=== PATIENT | male | born 1995 | race Caucasian/White ===

== ENCOUNTER 2024-09-20 09:52 | Outpatient (AMB) | payer OTHER, SELFPAY ==
--- NOTE | 2024-09-20 10:04 | MHC.PC.OV ---
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 ?? Prior PCP:?No PCP Last office visit/CPE:? > 5 yrs Acute issue(s):? R shoulder pain Elevated BP ?? PMHx:? Denies SurgHx:?None FHx:?Dad: DM, SocHx: Nonsmoker, EtOH None. No drugs Questionnaire PHQ-9 Over the last 2 weeks, how often have you been bothered by any of the following problems? 1. Little interest or pleasure in doing things: not at all 2. Feeling down, depressed, or hopeless: not at all 3. Trouble falling or staying asleep, or sleeping too much: not at all 4. Feeling tired or having little energy: not at all 5. Poor appetite or overeating: not at all 6. Feeling bad about yourself - or that you are a failure or have let yourself or your family down: not at all 7. Trouble concentrating on things, such as reading the newspaper or watching television: not at all 8. Moving or speaking so slowly that other people could have noticed. Or the opposite - being so fidgety or restless that you have been moving around a lot more than usual: not at all 9. Thoughts that you would be better off or of hurting yourself in some way: not at all Total score: 0 Depression Screening Interpretation: Positive Depression Screening Done: Yes 08020 - PHQ-9 Billing: Yes Source: Developed by Drs. Brennan Zhang, Tamica Maddox, Santiago Balderas and colleagues, with an educational iraida from [employer]. Thrive Questionnaire I am a: Patient What is your living situation today?: I have a steady place to live Within the past 12 months, did the food you bought not last and you didn't have the money to get more?: Never true Within the past 12 months, did you worry whether your food would run out before you got money to buy more?: Never true Do you have trouble paying for medicines?: I choose not to answer this question Do you have trouble getting transportation to medical appointments?: No Do you have trouble paying your heating and electricity bill?: No Do you have trouble taking care of your child, family member or friend?: No Do you have trouble with day-to-day activities such as bathing, preparing meals, shopping, managing finances, etc.?: No Are you currently unemployed and looking for a job?: No Are you interested in more education?: No Please select the resources that you would like help with: None Currently or been in a relationship where the following occur: No concerns reported THRIVE Score: 0 AUDIT C Alcohol Use Questionnaire (AUDIT-C) 1. How often do you have a drink containing alcohol?: Never Total Score: 0 YANY-7 AMB Questionnaire YANY-7 Feeling nervous, anxious, or on edge: 1 = Several days Not being able to stop or control worryin = Not at all Worrying too much about different things: 0 = Not at all Trouble relaxin = Not at all Being so restless that it is hard to sit still: 0 = Not at all Becoming easily annoyed or irritable: 0 = Not at all Source: Developed by Drs. Brennan Zhang, Tamica Maddox, Santiago Balderas and colleagues, with an educational iraida from [employer]. YANY-7 Assessment Billing YANY-7 Assessment Tool: YANY-7 Assessment 28076 Review of Systems Const Denies chills, Denies fatigue, Denies fever(s), Denies headache(s) and Denies weakness Eyes Denies change in vision ENT Denies dizziness and Denies headache(s) Card Denies chest pain, Denies lightheadedness, Denies dyspnea and Denies other (Palpitations) Resp Denies cough, Denies dyspnea, Denies wheezing and Denies other ( shortness of breath) GI Denies abdominal pain, Denies melena, Denies hematochezia, Denies change in bowel habits, Denies dyspepsia and Denies nausea Denies hematuria and Denies dysuria Musc Denies numbness and Denies tingling Skin/Breast Denies rash, Denies unusual bruising and Denies wounds Neuro Denies dizziness, Denies headache(s), Denies numbness, Denies Sensory deficit (Neuro), Denies tingling, Denies paresthesias and Denies weakness Psych Denies anxiety and Denies depression Endo Denies fatigue Charles/Lymph Denies easy bleeding and Denies easy bruising Aller/Immun Denies wheezing Physical exam (Primary Care) Vital Signs: Last Vital Signs Temp 97.9 F 09/20/24 10:05 Pulse 85 09/20/24 10:05 Resp 12 09/20/24 10:05 BP 149/78 H 09/20/24 10:05 Pulse Ox 97 09/20/24 10:05 Oxygen Delivery Method Room Air 09/20/24 10:05 BMI result Body Mass Index 42.7 PHQ-9: PHQ-9 Score PHQ-9: Total score 0 09/20/24 10:20 Depression Screening Interpretation: Positive Currently or been in a relationship where the following occur: No concerns reported Const General: no acute distress and well developed Nutritional Appearance: well nourished and obese morbidly obese Orientation/consciousness: patient oriented x3 HENMT Head: Yes normocephalic and Yes atraumatic Ears: hearing grossly normal bilaterally and TM's normal bilaterally General nose exam: Normal external nose present and Normal nares present Mouth: Normal oral and palatal mucosa present and moist mucous membranes Teeth and gingiva: dentition normal Throat: Yes posterior oropharynx normal Eyes General: appearance normal, both eyes and all related structures Pupils: Equal, round and reactive pupils present EOM: EOMs intact bilaterally Neck Neck: Yes normal visual inspection, Yes no lymphadenopathy and Yes trachea midline Thyroid: Thyroid normal Carotids: no bruits Lymphatic: no lymphadenopathy noted Chest Chest palpation & inspection: normal inspection of the chest Resp Effort & Inspection: normal respiratory effort Auscultation: clear to auscultation bilaterally Cardio Rate: regular rate Rhythm: regular rhythm Heart sounds: S1 normal heart sound present, S2 normal heart sound present, no gallops, no murmurs and no rubs Bruits: no abdominal aortic bruits and no carotid bruits GI Palpation (GI): No Abdominal aortic bruit present, Soft to palpation, nontender, No hepatosplenomegaly present and No Rebound tenderness present Auscultation: normal bowel sounds General: Yes no CVA tenderness Back/Spine/Pelvis Back: no CVA tenderness Cervical Spine: cervical ROM normal and No Cervical spine tenderness Thoracic/Lumbar Spine: thoraco-lumbar ROM normal, No pain with thoraco-lumbar ROM, No thoracic spinal tenderness and No lumbar spinal tenderness Skin Lesions: no lesions Rashes: no rashes Trauma: no lacerations or abrasions Wounds: no wounds Nails: normal Neuro General: patient oriented x3 and gait normal Cranial nerves: Yes Equal, round and reactive pupils present Cognition (Neuro): normal cognition Gait exam (Neuro): Normal gait present Motor exam (neuro): 5/5 motor strength present throughout Sensory Exam: No Sensory deficit (Neuro) Deep tendon reflexes (DTR's): Right patellar reflex intensity grade: 2+ and Left patellar reflex intensity grade: 2+ Extrem General: Yes normal to inspection and No edema Psych Appearance: grossly normal Affect: normal affect Attitude: cooperative Thought process: Normal thought process present Coding Level of Care Code New Pt Level 3 (77749) New Pt Prev Care 18-39yr(76389 Diagnoses Adult general medical exam Z00.00 Elevated blood pressure reading R03.0 Morbid obesity E66.01 Shoulder pain M25.519 Neoplasm of uncertain behavior of skin D48.5 Laboratory exam ordered as part of routine general medical examination Z00.00 Additional Codes YANY-7 Assessment Billing - YANY-7 Assessment Tool: YANY-7 Assessment 02112 ([id number]) Assessment & Plan Assessment & Plan (1) Adult general medical exam: Code(s): Z00.00 - Encounter for general adult medical examination without abnormal findings Category: Medical Plan: Patient?presents?as?new?patient?for?complete?physical?exam (2) Elevated blood pressure reading: Code(s): R03.0 - Elevated blood-pressure reading, without diagnosis of hypertension Category: Medical Plan: Blood?pressure?is?high.??Patient?denies?prior?diagnosis?of?hypertension We?discussed?that?we?will?recheck?this?at?his?next?visit Encouraged?weight?loss?and?salt/sodium?avoidance (3) Morbid obesity: Code(s): E66.01 - Morbid (severe) obesity due to excess calories Category: Medical Plan: Encouraged?weight?loss (4) Shoulder pain: Code(s): M25.519 - Pain in unspecified shoulder Category: Medical Plan: Start?physical?therapy NSAIDs If?not?improving?will?make?referral?to?Ortho (5) Neoplasm of uncertain behavior of skin: Code(s): D48.5 - Neoplasm of uncertain behavior of skin Category: Medical Plan: Large?moles?and?skin?tags?at?back?of?head?in?hairline Referred?to?dermatology (6) Laboratory exam ordered as part of routine general medical examination: Code(s): Z00.00 - Encounter for general adult medical examination without abnormal findings Category: Medical Plan: Check?labs Orders: Orders Lipid Panel Today Z00.00 - Encounter for general adult medical examination without abnormal findings UA and rflx microscopic Today Z00.00 - Encounter for general adult medical examination without abnormal findings HIV Ab/Ag Today Z11.3 - Encounter for screening for infections with a predominantly sexual mode of transmission Hepatitis B,C Profile Today Z11.3 - Encounter for screening for infections with a predominantly sexual mode of transmission Syphilis Screen Today Z11.3 - Encounter for screening for infections with a predominantly sexual mode of transmission PT Evaluation and Treatment Today M25.519 - Pain in unspecified shoulder Comprehensive [place]. Panel Fast Today Z00.00 - Encounter for general adult medical examination without abnormal findings Microalbumin, Random (w Creat) Today I10 - Essential (primary) hypertension TSH reflex Free T4 Today Z00.00 - Encounter for general adult medical examination without abnormal findings CT NG by PCR Today Z11.3 - Encounter for screening for infections with a predominantly sexual mode of transmission Referrals Dermatology Referral D48.5 - Neoplasm of uncertain behavior of skin
[2024-09-20 10:05] VITALS: BP 149/78; PULSE 85; RESP 12; TEMP 36.6; O2SAT 97; BMI 42.7
== END 2024-09-20 11:00 | disposition home or self-care (01) ==
PROVIDERS: PCP Family Medicine; Visit Provider Family Medicine
DX: Z00.00 Encounter for general adult medical examination without abnormal findings (principal); E66.01 Morbid (severe) obesity due to excess calories; Z68.41 Body mass index [BMI] 40.0-44.9, adult; R03.0 Elevated blood-pressure reading, without diagnosis of hypertension; M25.511 Pain in right shoulder; D48.5 Neoplasm of uncertain behavior of skin

== ENCOUNTER → 2024-09-20 09:52 | Outpatient (BNVA) | payer OTHER, SELFPAY | PROVIDERS: PCP Nurse Practitioner Family; Visit Provider Family Medicine | DX: Z00.01 Encounter for general adult medical examination with abnormal findings (principal); R03.0 Elevated blood-pressure reading, without diagnosis of hypertension; E66.01 Morbid (severe) obesity due to excess calories; D48.5 Neoplasm of uncertain behavior of skin; M25.511 Pain in right shoulder | CPT/HCPCS: 96127; 99202; 99385 ==

== ENCOUNTER 2024-10-19 09:41 | Outpatient (AMB) | payer OTHER, SELFPAY ==
[2024-10-19 10:09] VITALS: BP 128/80; PULSE 83; RESP 14; TEMP 37.1; O2SAT 98; BMI 42.7
--- NOTE | 2024-10-19 10:09 | A.OFFPC_ITS ---
Vital Signs 10/19/24 10:09 Height 5 ft 8 in Weight 281 lb 2 oz BMI 42.7 BP 128/80 Blood Pressure Location Lt brachial Position Sitting Respiration 14 Pulse 83 Pulse Source Pulse Oximeter Temp 98.7 F Temp Source Oral Pulse Oximetry (%) 98 Oxygen Delivery Method Room Air Intake Visit Reasons: f/u CPE-labs, elev. blood pressure Intake Note: elevated bp Allergies No Known Allergies Allergy (Verified 10/19/24 10:09) Medication List - Last Reconciled 10/19/24 by Peewee Blum MD No Known Home Meds HPI f/u CPE-labs, elev. blood pressure HPI Details 29 y/o male presents to f/u elevated BP. Blood pressure today 128/80, 83p. Questionnaire Thrive Questionnaire Date Thrive assessed: 09/20/24 I am a: Patient What is your living situation today?: I have a steady place to live Within the past 12 months, did the food you bought not last and you didn't have the money to get more?: Never true Within the past 12 months, did you worry whether your food would run out before you got money to buy more?: Never true Do you have trouble paying for medicines?: I choose not to answer this question Do you have trouble getting transportation to medical appointments?: No Do you have trouble paying your heating and electricity bill?: No Do you have trouble taking care of your child, family member or friend?: No Do you have trouble with day-to-day activities such as bathing, preparing meals, shopping, managing finances, etc.?: No Are you currently unemployed and looking for a job?: No Are you interested in more education?: No Please select the resources that you would like help with: None Currently or been in a relationship where the following occur: No concerns reported THRIVE Score: 0 Review of Systems Const Denies chills, Denies fatigue, Denies fever(s), Denies headache(s) and Denies weakness ENT Denies dizziness and Denies headache(s) Card Denies dyspnea Resp Denies cough, Denies dyspnea, Denies wheezing and Denies other (shortness of breath) Musc Denies numbness and Denies tingling Neuro Denies dizziness, Denies headache(s), Denies numbness, Denies tingling and Denies weakness Psych Denies anxiety and Denies depression Endo Denies fatigue Aller/Immun Denies wheezing Physical exam (Primary Care) Vital Signs: Last Vital Signs Temp 98.7 F 10/19/24 10:09 Pulse 83 10/19/24 10:09 Resp 14 10/19/24 10:09 BP 128/80 10/19/24 10:09 Pulse Ox 98 10/19/24 10:09 Oxygen Delivery Method Room Air 10/19/24 10:09 BMI result Body Mass Index 42.7 Thrive Assessment: Date of Thrive Assessment Date Thrive assessed 09/20/24 10/19/24 10:11 Currently or been in a relationship where the following occur: No concerns reported Const General: well developed; No acute distress Nutritional Appearance: well nourished Orientation/consciousness: patient oriented x3 HENMT Head: Yes normocephalic and Yes atraumatic Eyes General: appearance normal, both eyes and all related structures Pupils: Equal, round and reactive pupils present EOM: EOMs intact bilaterally Resp Effort & Inspection: normal respiratory effort Auscultation: clear to auscultation bilaterally Cardio Rate: regular rate Rhythm: regular rhythm Heart sounds: S1 normal heart sound present, S2 normal heart sound present, no gallops, no murmurs and no rubs Neuro General: patient oriented x3 and gait normal Cranial nerves: Yes Equal, round and reactive pupils present Psych Affect: normal affect Coding Level of Care Code Est Pt Level 3 (75078) Diagnoses Elevated blood pressure reading R03.0 Assessment & Plan Assessment & Plan (1) Elevated blood pressure reading: Code(s): R03.0 - Elevated blood-pressure reading, without diagnosis of hypertension Category: Medical Plan: Blood?pressure?much?improved?from?last?encounter?i n?only?mildly?in?prehypertensive?range. Encouraged?a?diet?low?in?salt/sodium?and?encouraged?weight?loss?exercise
== END 2024-10-19 10:15 | disposition home or self-care (01) ==
PROVIDERS: PCP Nurse Practitioner Family; Visit Provider Family Medicine
DX: R03.0 Elevated blood-pressure reading, without diagnosis of hypertension (principal)

== ENCOUNTER → 2024-10-19 09:41 | Outpatient (BNVA) | payer OTHER, SELFPAY | PROVIDERS: PCP Nurse Practitioner Family; Visit Provider Family Medicine ==

== ENCOUNTER 2024-10-19 09:54 | Outpatient (REF) | payer OTHER, SELFPAY ==
[2024-10-19 11:18] LABS: Appearance Urine Clear; Color Urine Yellow; Glucose Urine UA Negative (Negative); Leukocyte Esterase Urine Negative (Negative); Nitrite Urine Negative (Negative); Specific Gravity - Urine 1.015 (1.005-1.025); Urine Blood Negative (Negative); Urine Ketones Negative (Negative); Urine Protein Negative (Neg-Trace)
[2024-10-19 11:52] LABS: Creatinine Urine 113.39 mg/dL; Microalbum/Creatinine Ratio Ur 6.1 ug/mg cr (<30)
[2024-10-19 12:20] LABS: Alanine Aminotransferase 67 U/L (0-40); Albumin Level 4.3 g/dL (3.5-5.0); Alkaline Phosphatase 69 U/L (39-117); Anion Gap 10 (12-20); Aspartate Amino Transferase 34 U/L (5-37); Bilirubin Total 0.5 mg/dL (0.0-1.0); Blood Urea Nitrogen 12 mg/dL (9-16); Calcium 9.5 mg/dL (8.4-10.2); Carbon Dioxide 28 mmol/L (22-29); Chloride 106 mmol/L (96-108); Cholesterol 161 mg/dL (<200); Estimated Glomerular Filt Rate > 60; Glucose Fasting 90 mg/dL (60-99); HDL Cholesterol 25 mg/dL (>40); LDL Cholesterol Calculated 87 mg/dL (<100); Potassium 3.8 mmol/L (3.3-5.1); Sodium 140 mmol/L (135-145); Total Protein 7.8 g/dL (6.5-8.0); Triglycerides 249 mg/dL (<150)
[2024-10-19 12:27] LABS: Syphilis Screen Nonreactive (Nonreactive)
[2024-10-19 12:28] LABS: TSH reflex Free T4 2.01 uIU/mL (0.32-4.0)
[2024-10-19 12:31] LABS: HBsAGNum1 0.46 S/CO (0.00-0.99); HIV AB/AG Nonreactive (Nonreactive); HIV Num 1 0.07 S/CO (0.00-0.99); Hepatitis B Core Antibody Nonreactive (Nonreactive); Hepatitis B Surface Antigen Negative (Negative); ~HepC Num1 0.12 S/CO (0.00-0.79); ~Hepatitis B Surface Antibody NONREACTIVE (Nonreactive); ~Hepatitis C Antibody Nonreactive (Nonreactive)
[2024-10-19 13:34] LABS: CT PCR NOT DETECTED (Not Detect.); NG PCR NOT DETECTED (Not Detect.)
== END 2024-10-19 09:55 | disposition home or self-care (01) ==
LOC: HO.WFDLDS 09:54
PROVIDERS: Visit Provider Family Medicine
DX: R03.0 Elevated blood-pressure reading, without diagnosis of hypertension (principal); Z00.00 Encounter for general adult medical examination without abnormal findings; Z11.3 Encounter for screening for infections with a predominantly sexual mode of transmission
CPT/HCPCS: 80053; 80061; 81003; 82043; 82570; 84443; 86704; 86706; 86780; 86803; 87340; 87389; 87491; 87591; 99212

== ENCOUNTER 2024-11-24 16:58 | Outpatient (AMB) | payer OTHER, SELFPAY ==
--- NOTE | 2024-11-24 16:56 | MHC.PC.OV ---
Intake Visit Reasons: f/u CPE-labs via telemedicine Allergies No Known Allergies Allergy (Verified 11/24/24 16:57) HPI f/u CPE-labs via telemedicine HPI Details 29 y/o male presents to f/u CPE-labs via telemedicine. Labs drawn 10/19/24. Reviewed labsw ith pt. Elevated ALT of 67. Triglycerides 249. TC 161. LDL 87. HDL low at 25. HPI Comments History of Present Illness Details Documentation assistance for Peewee Blum MD, was provided by Kumar Wolf,? Mica Layer on 11/24/2024 at 5:39 PM EST. I, Dr. Blum, have read, observed, and verified documentation. ?? Questionnaire Thrive Questionnaire Date Thrive assessed: 09/20/24 Review of Systems Const Denies chills, Denies fatigue, Denies fever(s), Denies headache(s) and Denies weakness ENT Denies dizziness and Denies headache(s) Card Denies dyspnea Resp Denies cough, Denies dyspnea, Denies wheezing and Denies other (shortness of breath) Musc Denies numbness and Denies tingling Neuro Denies dizziness, Denies headache(s), Denies numbness, Denies tingling and Denies weakness Psych Denies anxiety and Denies depression Endo Denies fatigue Aller/Immun Denies wheezing Physical exam (Primary Care) Thrive Assessment: Date of Thrive Assessment Date Thrive assessed 09/20/24 11/24/24 16:57 Telehealth Telehealth Telehealth Platform: Telephone Location of provider rendering services: practice address Location of patient: address on file Patient Identification confirmed using: Name, : Yes Telehealth method: voice only Patient verbally consented to treatment: Yes Patient verbally consented to billing insurance company: Yes Patient informed of any privacy concerns related to visit: Yes Minutes spent on Phone/Video with Pt.: 7 Coding Level of Care Code Tele Est Pt Level 2 (65500) Diagnoses Elevated ALT measurement R74.01 Hypertriglyceridemia E78.1 Low HDL (under 40) E78.6 Assessment & Plan Assessment & Plan (1) Elevated ALT measurement: Code(s): R74.01 - Elevation of levels of liver transaminase levels Category: Medical Plan: Liver?enzyme?elevated. Patient?is?significantly?overweight?but?he?has?been?working?on?this Encouraged?weight?loss?and?exercise Will?recheck?liver?enzymes?in?about?3?months. Hydrate?well (2) Hypertriglyceridemia: Code(s): E78.1 - Pure hyperglyceridemia Category: Medical Plan: Triglycerides?are?elevated?and?as?above,?I?encouraged?weight?loss?and?exercise Will?recheck?in?few?months?with?next?lab?draw (3) Low HDL (under 40): Code(s): E78.6 - Lipoprotein deficiency Category: Medical Plan: Encouraged?exercise Will?follow-up?at?next?lab?draw?in?about?3?months Orders: Orders Lipid Panel Today Z00.00 - Encounter for general adult medical examination without abnormal findings Comprehensive [place]. Panel Fast Today Z00.00 - Encounter for general adult medical examination without abnormal findings
== END 2024-11-25 10:03 | disposition home or self-care (01) ==
LOC: HO.HMCFM 16:58
PROVIDERS: PCP Family Medicine; Visit Provider Family Medicine
DX: R74.01 Elevation of levels of liver transaminase levels (principal); E78.1 Pure hyperglyceridemia; E78.6 Lipoprotein deficiency

== ENCOUNTER 2025-02-22 13:29 | Outpatient (REF) | payer OTHER, SELFPAY ==
[2025-02-22 18:56] LABS: Alanine Aminotransferase 73 U/L (0-40); Albumin Level 4.5 g/dL (3.5-5.0); Alkaline Phosphatase 77 U/L (39-117); Anion Gap 12 (12-20); Aspartate Amino Transferase 43 U/L (5-37); Bilirubin Total 0.6 mg/dL (0.0-1.0); Blood Urea Nitrogen 14 mg/dL (9-16); Calcium 9.5 mg/dL (8.4-10.2); Carbon Dioxide 25 mmol/L (22-29); Chloride 105 mmol/L (96-108); Cholesterol 154 mg/dL (<200); Estimated Glomerular Filt Rate > 60; Glucose Fasting 79 mg/dL (60-99); HDL Cholesterol 28 mg/dL (>40); LDL Cholesterol Calculated 80 mg/dL (<100); Potassium 3.7 mmol/L (3.3-5.1); Sodium 138 mmol/L (135-145); Total Protein 8.1 g/dL (6.5-8.0); Triglycerides 234 mg/dL (<150)
== END 2025-02-22 13:30 | disposition home or self-care (01) ==
LOC: HO.WFDLDS 13:29
PROVIDERS: Visit Provider Family Medicine
DX: Z00.00 Encounter for general adult medical examination without abnormal findings (principal); Z13.6 Encounter for screening for cardiovascular disorders
CPT/HCPCS: 36415; 80053; 80061

== ENCOUNTER 2025-02-23 16:26 | Outpatient (AMB) | payer OTHER, SELFPAY ==
--- NOTE | 2025-02-23 16:28 | MHC.PC.OV ---
Vital Signs 02/23/25 16:32 Height 5 ft 8 in Weight 281 lb 4 oz BMI 42.8 BP 136/78 Blood Pressure Location Rt brachial Position Sitting Respiration 16 Pulse 74 Pulse Source Pulse Oximeter Temp 98.3 F Temp Source Oral Pulse Oximetry (%) 98 Oxygen Delivery Method Room Air Intake Visit Reasons: f/u hypertriglyceridemia, labs Intake Note: patient here for follow up on hypertriglyceridemia and labs Fun House Attendant Required: No Allergies No Known Allergies Allergy (Verified 02/23/25 16:30) Tobacco use date assessed: 02/23/25 Dental Screening Dental Screen Date: 02/23/25 Did you have a dental visit in the last 12 months?: No Did you have a dental problem in the last 6 months where you did not have access to dental care?: No Was dental information given to patient?: No HPI f/u hypertriglyceridemia, labs HPI Details 30 y/o male presents to f/u hypertriglyceridemia, labs. Labs drawn 02/22/25. Reviewed labs with pt. Elevated liver enzymes - AST 43, ALT 73. Triglycerides 234. TC 154. LDL 80. HDL low at 28. Pt notes he has been having difficulty hearing people out of his L ear. [facility] Social History Housing: House Patient Tobacco Use Status: Never used Tobacco e-Cigarette/Vaping Use: Never Used Second Hand Smoke Exposure: No service: No Current occupational status: employed Current occupation: security Current occupational exposures/hazards: No Cognitive needs: No Hearing needs: No Vision needs: No Questionnaire Thrive Questionnaire Date Thrive assessed: 09/20/24 Review of Systems Const Denies chills, Denies fatigue, Denies fever(s), Denies headache(s) and Denies weakness ENT Denies dizziness and Denies headache(s) Card Denies dyspnea Resp Denies cough, Denies dyspnea, Denies wheezing and Denies other (shortness of breath) Musc Denies numbness and Denies tingling Neuro Denies dizziness, Denies headache(s), Denies numbness, Denies tingling and Denies weakness Psych Denies anxiety and Denies depression Endo Denies fatigue Aller/Immun Denies wheezing Physical exam (Primary Care) Vital Signs: Last Vital Signs Temp 98.3 F 02/23/25 16:32 Pulse 74 02/23/25 16:32 Resp 16 02/23/25 16:32 BP 136/78 02/23/25 16:32 Pulse Ox 98 02/23/25 16:32 Oxygen Delivery Method Room Air 02/23/25 16:32 BMI result Body Mass Index 42.8 Tobacco/Smoking Status: Tobacco use Status Tobacco use date assessed 02/23/25 02/23/25 16:32 Patient Tobacco Use Status Never used Tobacco 02/23/25 16:32 e-Cigarette/Vaping Use Never Used 02/23/25 16:32 Thrive Assessment: Date of Thrive Assessment Date Thrive assessed 09/20/24 02/23/25 16:32 Const General: well developed; No acute distress Nutritional Appearance: well nourished and obese morbidly obese Orientation/consciousness: patient oriented x3 HENMT Head: Yes normocephalic and Yes atraumatic Eyes General: appearance normal, both eyes and all related structures Pupils: Equal, round and reactive pupils present EOM: EOMs intact bilaterally Resp Effort & Inspection: normal respiratory effort Neuro General: patient oriented x3 and gait normal Cranial nerves: Yes Equal, round and reactive pupils present Psych Affect: normal affect Coding Level of Care Code Est Pt Level 4 (89796) Diagnoses Hypertriglyceridemia E78.1 Elevated liver enzymes R74.8 Cerumen debris on tympanic membrane of left ear H61.22 Assessment & Plan Assessment & Plan (1) Hypertriglyceridemia: Code(s): E78.1 - Pure hyperglyceridemia Category: Medical Plan: Elevated?triglycerides?with?low?HDL LDL?is?okay Trial?in?[place]?3?supplement Can?recheck?next?visit (2) Elevated liver enzymes: Code(s): R74.8 - Abnormal levels of other serum enzymes Category: Medical Plan: Liver?enzymes?have?risen Check?ultrasound Will?call?patient?if?action?is?required?otherwise?will?review?at?next?visit. (3) Cerumen debris on tympanic membrane of left ear: Code(s): H61.22 - Impacted cerumen, left ear Category: Medical Plan: Can?try?Debrox?drops?OTC Avoid?using?Q-tips?in?ear?canal Orders: Orders Lipid Panel Today E78.6 - Lipoprotein deficiency, Z00.00 - Encounter for general adult medical examination without abnormal findings US abdomen interiano w elastography Today R74.8 - Abnormal levels of other serum enzymes Comprehensive [place]. Panel Fast Today R74.8 - Abnormal levels of other serum enzymes, Z00.00 - Encounter for general adult medical examination without abnormal findings Medications: New omega 5-aeb-zmf-fish oil 1,000 (120-180) mg (Fish Oil) 1 cap PO BID 90 days 180 caps 3RF
[2025-02-23 16:32] VITALS: BP 136/78; PULSE 74; RESP 16; TEMP 36.8; O2SAT 98; BMI 42.8
== END 2025-02-23 17:21 | disposition home or self-care (01) ==
LOC: HO.HMCFM 16:26
PROVIDERS: PCP Family Medicine; Visit Provider Family Medicine
DX: E78.1 Pure hyperglyceridemia (principal); R74.8 Abnormal levels of other serum enzymes; H61.22 Impacted cerumen, left ear

== ENCOUNTER → 2025-02-23 16:26 | Outpatient (BNVA) | payer OTHER, SELFPAY | PROVIDERS: PCP Family Medicine; Visit Provider Family Medicine | DX: E78.1 Pure hyperglyceridemia (principal); E78.6 Lipoprotein deficiency; R74.8 Abnormal levels of other serum enzymes; H61.22 Impacted cerumen, left ear | CPT/HCPCS: 99212 ==

== ENCOUNTER 2025-04-08 11:12 | Outpatient (REF) | payer OTHER, SELFPAY ==
--- NOTE | ~2025-04-08 | US_ITS ---
EXAMINATION: US ABDOMEN LIMITED WITH LIVER ELASTOGRAPHY HISTORY: R74.8 - Abnormal levels of other serum enzymes TECHNIQUE: Real-time grayscale ultrasound imaging of the right upper quadrant was performed and images were reviewed. COMPARISON: There are no prior studies for comparison. FINDINGS: Liver: The right lobe of the liver measures 15.7 cm in size. The left lobe of the liver measures 9.5 cm in size. The liver demonstrates increased echotexture, consistent with steatosis. No focal mass or intrahepatic biliary ductal dilatation is identified. There is normal hepatopedal flow in the portal vein. Ultrasound elastography of the liver was performed with 10 separate measurements of the liver parenchyma with the patient in the supine position. Measurements were obtained approximately 2 cm below Fabiola's capsule and perpendicular to the capsule. Images are of satisfactory quality. The median shear wave velocity is 1.14 m/s. The interquartile range/median (IQR/median) is 0.14. Gallbladder and biliary tree: The gallbladder is unremarkable, without evidence of calculi, wall thickening, or pericholecystic fluid. There is no sonographic Carlson sign. The common bile duct is normal in caliber measuring 3 mm. Right Kidney: The right kidney measures 10.0 cm in length. The right kidney is unremarkable, without evidence of masses, hydronephrosis, or calculi. Pancreas: The pancreatic head, neck, and body are unremarkable. The pancreatic tail is obscured by bowel gas. Abdominal aorta and inferior vena cava: The visualized portions of the abdominal aorta and inferior vena cava are normal in caliber. There is no free fluid in the right upper quadrant. US/US abdomen interiano w elastography IMPRESSION: Hepatic steatosis. The median shear wave velocity in the liver is 1.14 m/s, corresponding to a median liver stiffness of 4.07 kPa. The IQR/median value is 0.14. This is indicative of a quality data set. Findings are indicative of a normal elastography value with a low likelihood of severe fibrosis or cirrhosis. REFERENCE: Society of Radiologists in Ultrasound Liver Stiffness Thresholds (2020): LIVER STIFFNESS THRESHOLDS: *Shear wave velocity less than 1.3 m/s (Liver Stiffness equal or less than 5 kPa): High probability of being normal. *Shear wave velocity less than 1.7 m/s (Liver Stiffness less than 9 kPa): In the absence of other known clinical signs, rules out compensated advanced chronic liver disease. *Shear wave velocity between 1.7-2.1 m/s (Liver Stiffness 9-13 kPa): Suggestive of compensated advanced chronic liver disease but need further test for confirmation. *Shear wave velocity between 2.1-2.4 m/s (Liver Stiffness 13-17 kPa): Rules in compensated advanced chronic liver disease. *Shear wave velocity greater than 2.4 m/s (Liver Stiffness over 17 kPa): Suggestive of clinically significant portal hypertension. QUALITY OF DATA SET: *IQR/Median value equal or less than 0.15 implies a quality data set. *IQR/Median value over 0.15 implies a poor quality data set. SIGNIFICANT CHANGE FROM PRIOR EXAM: Significant change if liver stiffness measurement is 10% or greater from prior exam. OTHER CONSIDERATIONS: The stage of liver fibrosis may be overestimated in the setting of acute hepatitis, liver inflammation, elevated liver function tests, hepatic vascular congestion, obstructive cholestasis, non-fasting state, and infiltrative diseases such as amyloidosis and lymphoma. In some patients with NAFLD, the liver stiffness thresholds for compensated advanced chronic liver disease may be lower. In causes other than viral hepatitis and NAFLD, liver stiffness thresholds are not well established. Electronically signed by: Brennan Berg MD 04/08/2025 12:08 PM EDT
== END 2025-04-08 11:13 | disposition home or self-care (01) ==
LOC: HO.US 11:12
PROVIDERS: PCP Family Medicine; Visit Provider Family Medicine
DX: R74.8 Abnormal levels of other serum enzymes (principal)
CPT/HCPCS: 76705; 76981

== ENCOUNTER → 2025-04-08 11:21 | Outpatient (BNV) | payer OTHER, SELFPAY | PROVIDERS: PCP Family Medicine; Visit Provider Radiology Diagnostic Radiology | DX: K76.0 Fatty (change of) liver, not elsewhere classified (principal) | CPT/HCPCS: 76705; 76981 ==

== ENCOUNTER 2025-05-26 15:04 | Outpatient (REF) | payer OTHER, SELFPAY ==
[2025-05-26 16:44] LABS: Alanine Aminotransferase 77 U/L (0-40); Albumin Level 4.9 g/dL (3.5-5.0); Alkaline Phosphatase 71 U/L (39-117); Anion Gap 13 (12-20); Aspartate Amino Transferase 40 U/L (5-37); Blood Urea Nitrogen 15 mg/dL (9-16); Calcium 9.5 mg/dL (8.4-10.2); Carbon Dioxide 26 mmol/L (22-29); Chloride 103 mmol/L (96-108); Cholesterol 144 mg/dL (<200); Estimated Glomerular Filt Rate > 60; HDL Cholesterol 26 mg/dL (>40); Potassium 3.8 mmol/L (3.3-5.1); Sodium 138 mmol/L (135-145); Total Protein 8.3 g/dL (6.5-8.0); Triglycerides 261 mg/dL (<150)
== END 2025-05-26 15:05 | disposition home or self-care (01) ==
LOC: HO.LAB 15:04
PROVIDERS: Visit Provider Family Medicine
DX: Z00.00 Encounter for general adult medical examination without abnormal findings (principal); E78.6 Lipoprotein deficiency; R74.8 Abnormal levels of other serum enzymes
CPT/HCPCS: 36415; 80053; 80061

== ENCOUNTER 2025-05-30 10:41 | Outpatient (AMB) | payer OTHER, SELFPAY ==
--- NOTE | 2025-05-30 10:52 | A.OFFPC_ITS ---
Vital Signs 05/30/25 10:53 Height 5 ft 8 in Weight 280 lb 6 oz BMI 42.6 BP 130/90 H Blood Pressure Location Rt brachial Position Sitting Respiration 14 Pulse 85 Pulse Source Pulse Oximeter Temp 97.9 F Temp Source Oral Pulse Oximetry (%) 96 Oxygen Delivery Method Room Air Intake Visit Reasons: f/u liver enzymes, triglycerides Intake Note: patient is scheduled for follow up labs Sub Assembly Team Worker Required: No Allergies No Known Allergies Allergy (Verified 05/30/25 10:53) Medication List - Last Reconciled 05/30/25 by Peewee Blum MD omega [id number] oil 1,000 (120-180) mg (Fish Oil) 1 cap PO BID 90 days Tobacco use date assessed: 02/23/25 Dental Screening Dental Screen Date: 02/23/25 HPI f/u liver enzymes, triglycerides HPI Details 30 y/o male presents to f/u liver enzyme s, triglycerides. Labs drawn 05/26/25. Reviewed labs wtih pt. Elevated liver enzymes - AST 40, ALT 77. Triglycerides 261. TC 144. LDL 66. HDL low at 26. PFSH Social History Housing: House Patient Tobacco Use Status: Never used Tobacco e-Cigarette/Vaping Use: Never Used Second Hand Smoke Exposure: No service: No Current occupational status: employed Current occupation: security Current occupational exposures/hazards: No Cognitive needs: No Hearing needs: No Vision needs: No Questionnaire Thrive Questionnaire Date Thrive assessed: 02/23/25 I am a: Patient What is your living situation today?: I have a steady place to live Within the past 12 months, did the food you bought not last and you didn't have the money to get more?: Never true Within the past 12 months, did you worry whether your food would run out before you got money to buy more?: Never true Do you have trouble paying for medicines?: No Do you have trouble getting transportation to medical appointments?: No Do you have trouble paying your heating and electricity bill?: No Do you have trouble taking care of your child, family member or friend?: No Do you have trouble with day-to-day activities such as bathing, preparing meals, shopping, managing finances, etc.?: No Are you currently unemployed and looking for a job?: No Are you interested in more education?: No Please select the resources that you would like help with: None Currently or been in a relationship where the following occur: No concerns reported THRIVE Score: 0 Review of Systems Const Denies chills, Denies fatigue, Denies fever(s), Denies headache(s) and Denies weakness ENT Denies dizziness and Denies headache(s) Card Denies dyspnea Resp Denies cough, Denies dyspnea, Denies wheezing and Denies other (shortness of breath) Musc Denies numbness and Denies tingling Neuro Denies dizziness, Denies headache(s), Denies numbness, Denies tingling and Denies weakness Psych Denies anxiety and Denies depression Endo Denies fatigue Aller/Immun Denies wheezing Physical exam (Primary Care) Vital Signs: Last Vital Signs Temp 97.9 F 05/30/25 10:53 Pulse 85 05/30/25 10:53 Resp 14 05/30/25 10:53 BP 130/90 H 05/30/25 10:53 Pulse Ox 96 05/30/25 10:53 Oxygen Delivery Method Room Air 05/30/25 10:53 BMI result Body Mass Index 42.6 Tobacco/Smoking Status: Tobacco use Status Tobacco use date assessed 02/23/25 05/30/25 10:56 Patient Tobacco Use Status Never used Tobacco 05/30/25 10:56 e-Cigarette/Vaping Use Never Used 05/30/25 10:56 Thrive Assessment: Date of Thrive Assessment Date Thrive assessed 02/23/25 05/30/25 10:56 Currently or been in a relationship where the following occur: No concerns reported Const General: well developed; No acute distress Nutritional Appearance: well nourished Orientation/consciousness: [facility]: Yes normocephalic and Yes atraumatic Eyes General: appearance normal, both eyes and all related structures Pupils: Equal, round and reactive pupils present EOM: EOMs intact bilaterally Resp Effort & Inspection: normal respiratory effort Neuro General: patient oriented x3 and gait normal Cranial nerves: Yes Equal, round and reactive pupils present Psych Affect: normal affect Coding Level of Care Code Est Pt Level 4 (15770) Diagnoses Hypertriglyceridemia E78.1 Elevated liver enzymes R74.8 Balanitis N48.1 Assessment & Plan Assessment & Plan (1) Hypertriglyceridemia: Code(s): E78.1 - Pure hyperglyceridemia Category: Medical Plan: Encouraged dietary changes (2) Elevated liver enzymes: Code(s): R74.8 - Abnormal levels of other serum enzymes Category: Medical Plan: Ongoing liver enzyme elevations Had recommended weight loss but patient has not lost weight yet Encouraged further weight loss (3) Balanitis: Code(s): N48.1 - Balanitis Category: Medical Plan: Encouraged avoiding excess moisture Can try clotrimazole Orders: Orders Comprehensive [place]. Panel Fast Today Z00.00 - Encounter for general adult medical examination without abnormal findings Lipid Panel Today Z00.00 - Encounter for general adult medical examination without abnormal findings Medications: New clotrimazole 1% 1 appl topical BID 45 grams 0RF 2 weeks
[2025-05-30 10:53] VITALS: BP 130/90; PULSE 85; RESP 14; TEMP 36.6; O2SAT 96; BMI 42.6
== END 2025-05-30 11:18 | disposition home or self-care (01) ==
LOC: HO.HMCFM 10:41
PROVIDERS: PCP Family Medicine; Visit Provider Family Medicine
DX: E78.1 Pure hyperglyceridemia (principal); R74.8 Abnormal levels of other serum enzymes; N48.1 Balanitis

== ENCOUNTER → 2025-05-30 10:41 | Outpatient (BNVA) | payer OTHER, SELFPAY | PROVIDERS: PCP Family Medicine; Visit Provider Family Medicine | DX: E78.1 Pure hyperglyceridemia (principal); R74.8 Abnormal levels of other serum enzymes; N48.1 Balanitis | CPT/HCPCS: 99212 ==